=== PATIENT | female | born 1995 | race Caucasian/White ===

== ENCOUNTER 2018-02-17 13:37 | Emergency (ER) | payer OTHER ==
[2018-02-17 14:07] VITALS: BP 116/76; PULSE 110; RESP 18; TEMP 98.4
--- NOTE | 2018-02-17 14:23 | ED ---
Lower Extremity Injury HPI - General Chief Complaint: Extremity Injury, Lower Stated Complaint: IHS/Ankle Pain Time Seen by Provider: 02/17/18 14:10 Source: patient, RN notes reviewed Mode of arrival: ambulatory Limitations: no limitations - History of Present Illness Initial Comments: This is a 22-year-old female who presents to the emergency department with chief complaint of work-related left ankle injury. Patient states that she stepped into a divot in the ground and her ankle twisted inward. This happened at noon. She states she heard a loud crack. Patient states that currently, she is experiencing no pain. She states she is able to bear weight and ambulate. She states the pain was present for approximately 20 minutes. She states that it hurt at the lateral aspect of her ankle and the plantar surface of the foot. Denies any other injuries or trauma. Denies recent fevers or chills, chest pain or shortness of breath, abdominal pain, nausea or vomiting, numbness or tingling. - Related Data Home Medications Medication Instructions Recorded Confirmed Minastrin 1 tab PO HS 02/17/18 02/17/18 Allergies Allergy/AdvReac Type Severity Reaction Status Date / Time No Known Allergies Allergy Verified 02/17/18 14:13 Review of Systems ROS Statement: Those systems with pertinent positive or pertinent negative responses have been documented in the HPI. ROS Other: All systems not noted in ROS Statement are negative. Past Medical History Additional Past Medical History / Comment(s): Low blood sugar History of Any Multi-Drug Resistant Organisms: None Reported Past Surgical History: Orthopedic Surgery Past Psychological History: No Psychological Hx Reported Smoking Status: Never smoker Past Alcohol Use History: Occasional Past Drug Use History: None Reported General Exam - General Exam Comments Initial Comments: General: Awake and alert, well-developed; in no apparent distress. Patient sitting comfortably on ED stretcher with friend at bedside. HEENT: Head atraumatic, normocephalic. Pupils are equal, round and reactive to light. Extraocular movements intact. Oropharynx moist without erythema or exudate. Neck: Supple. Normal ROM. Cardiovascular: Regular rate and rhythm. No murmurs, rubs or gallops. Chest symmetrical. Respiratory: Lungs clear to auscultation bilaterally. No wheezes, rales or rhonchi. Normal respiratory effort with no use of accessory muscles. Musculoskeletal: Normal range of motion of the left ankle and foot. There is no tenderness on palpation. No swelling, ecchymosis or erythema noted. Pedal pulses are 2+ equal palpable bilaterally. Sensation is intact. Skin: [place], warm and dry without rashes or lesions. Neurological: Alert and oriented x3. CN II-XII grossly intact. Speech is fluent and answers are appropriate. No focal neuro deficits. Psychiatric: Normal mood and affect. No overt signs of depression or anxiety noted. Limitations: no limitations Course Vital Signs 02/17/18 14:04 Temperature 98.4 F Pulse Rate 110 H Respiratory 18 Rate Blood Pressure 116/76 O2 Sat by Pulse 98 Oximetry Medical Decision Making - Medical Decision Making This is a 22-year-old female who presents to the emergency department with chief complaint work-related left ankle injury. Currently, she complains of no pain. She is bearing weight and ambulating. Patient sent to the emergency department by her boss. X-ray of the left ankle and foot revealed no acute abnormalities. Patient continues to be pain-free. Recommended rest, ice, elevation and ibuprofen or Tylenol as needed for pain. Recommended following up with orthopedics or primary care provider if pain persists beyond 7-10 days. Vital signs are stable and patient is in acute distress. She will be discharged home at this time. She is in agreement and voices understanding. All questions answered. - Radiology Data Radiology results: report reviewed X-ray left foot and left ankle impression: 7 mm ossific density below the medial malleolus. It has a corticated appearance of the radiographs of the foot suggesting chronic ununited fracture fragment. Correlate for focal pain here. Old healed fracture deformity of the distal fibular shaft. Soft tissue swelling around the distal leg and ankle. Otherwise, no acute osseous abnormality seen. Disposition Clinical Impression: Ankle sprain and strain Disposition: HOME SELF-CARE Condition: Good Instructions: Ankle Sprain (ED), RICE Therapy (ED) Additional Instructions: Please follow up with primary care provider within 1-2 days. Return to emergency department if symptoms should worsen or any concerns arise. Is patient prescribed a controlled substance at d/c from ED?: No Referrals: None,Stated [Primary Care Provider] - 1-2 days Time of Disposition: 15:19
--- NOTE | 2018-02-17 14:58 | XR ---
EXAMINATION TYPE: XR ankle complete 3 views LT, XR foot complete 3 views LT DATE OF EXAM: 02/17/2018 COMPARISON: NONE HISTORY: 22-year-old female fall and pain, old fracture in 2009. FINDINGS: Ankle and foot: There appears to be a healed fracture deformity of the distal fibular shaft. There is ossific density measuring 7 mm below the medial malleolus on both the AP and oblique views. This has a corticated appearance on oblique view of the foot. Talar dome is intact. Ankle mortise rem ains The foot shows no evidence for acute fracture or dislocation. 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 IMPRESSION (ankle and foot): 1. 7 mm ossific density below the medial malleolus. It has a corticated appearance on the radiographs of the foot suggesting chronic ununited fracture fragment. Correlate for focal pain here. 2. Old healed fracture deformity of the distal fibular shaft. Soft tissue swelling around the distal leg and ankle. 3. Otherwise, no acute osseous abnormality seen.
== END 2018-02-17 15:30 | disposition home or self-care (01) ==
LOC: EC 13:37
DX: S93.402A Sprain of unspecified ligament of left ankle, initial encounter (principal); S96.912A Strain of unspecified muscle and tendon at ankle and foot level, left foot, initial encounter; Z79.3 Long term (current) use of hormonal contraceptives; X50.1XXA Overexertion from prolonged static or awkward postures, initial encounter; Y93.01 Activity, walking, marching and hiking; Y99.0 Civilian activity done for income or pay; Y92.69 Other specified industrial and construction area as the place of occurrence of the external cause
CPT/HCPCS: 99283